=== PATIENT | female | born 1980 ===

== ENCOUNTER 2017-11-26 05:56 | Emergency (ER) | payer MEDICAID, OTHER ==
[2017-11-26 06:08] VITALS: BP 135/68; PULSE 98; RESP 16; TEMP 98.3; O2SAT 98
[2017-11-26] MEDS ORDERED: Tetracaine 0.5% Ophth 2 ML BOTTLE OU ONE (06:22)
[2017-11-26] MEDS ORDERED: Fluorescein 1 mg Ophthalmic Strip OS ONE (06:23)
[2017-11-26] MEDS ORDERED: Fluorescein 1 mg Ophthalmic Strip ONE (06:28)
[2017-11-26] MEDS ORDERED: Tetracaine 0.5% Ophth (OR ONLY) ONE (06:28)
[2017-11-26] MEDS ORDERED: PROPARACAINE/FLUORESCEIN SOD 100 DROP/5 ML BOTTLE ONE (06:30)
[2017-11-26] MEDS ORDERED: Amoxicillin-Clav 875-125 mg Tab PO STA (06:36)
[2017-11-26] MEDS ORDERED: Erythromycin 0.5% Ophth Oint 1 APPLIC/3.5 G OS STA (06:36)
[2017-11-26] MEDS ORDERED: PROPARACAINE/FLUORESCEIN SOD 100 DROP/5 ML BOTTLE OS STA (06:37)
--- NOTE | 2017-11-26 06:41 | C.PDOC ---
History Of Present Illness The patient reports 2 day history of Left eye pain which is described as burning and itchy. The patient reports that the eye was swollen and she applied warm compresses to the area with no relief. Denies contact lens use, fever, trauma, travel, vision changes. Time Seen by Provider: 11/26/17 06:22 Chief Complaint (Nursing): Eye Problem History Per: Patient History/Exam Limitations: no limitations Current Symptoms Are (Timing): Still Present Injury To Eye?: No Quality: Burning Wears Contact Lens?: No Recent travel outside of the [place]: No Past Medical History Vital Signs: Last Vital Signs Temp 98.3 F 11/26/17 06:00 Pulse 98 H 11/26/17 06:00 Resp 16 11/26/17 06:00 BP 135/68 11/26/17 06:00 Pulse Ox 98 11/26/17 06:00 - Medical History PMH: Anemia, Depression Surgical History: Cholecystectomy, ( x 3) - [facility] Procedures INJECT/INFUSE NEC (09/30/14) Family History: States: Diabetes (mother) - Social History Hx Tobacco Use: Yes Hx Alcohol Use: Yes Hx Substance Use: No - Immunization History Hx Tetanus Toxoid Vaccination: No Hx Influenza Vaccination: No Hx Pneumococcal Vaccination: No Review Of Systems Constitutional: Negative for: Fever ENT: Negative for: Ear Pain Skin: Negative for: Rash Neurological: Negative for: Weakness, Numbness Physical Exam - Physical Exam Appears: Non-toxic, No Acute Distress Skin: Normal Color, Warm Head: Atraumatic, Normacephalic Eye(s): bilateral: Normal Inspection Oral Mucosa: Moist Neck: Normal ROM, Supple Extremity: Normal ROM Neurological/Psych: Oriented x3, Normal Speech Gait: Steady ED Course And Treatment O2 Sat by Pulse Oximetry: 98 (on RA) Pulse Ox Interpretation: Normal Disposition - Disposition Referrals: [facility] [Outside] Jake Aranda MD [Staff Provider] - Disposition: HOME/ ROUTINE Disposition Time: 06:30 Condition: FAIR Additional Instructions: Follow up with the medical doctor within 1-2 days, Return if worsened. Prescriptions: Amoxicillin/Clavulanate [Augmentin 875 MG-125 MG] 1 tab PO BID #14 tab Erythromycin 0.5% [Ilytocin] 5 mg OS TID #1 tube Ibuprofen [Motrin] 600 mg PO TID #21 tab Instructions: Conjunctivitis (Pinkeye) (DC) Print Language: VIET[place]ESE - POA Present On Arrival: None - Clinical Impression Clinical Impression: Conjunctivitis
[2017-11-26] MEDS ORDERED: Amoxicillin-Clav 875-125 mg Tab PO ONE (06:43)
[2017-11-26] MEDS ORDERED: Erythromycin 0.5% Ophth Oint 1 APPLIC/3.5 G ONE (06:44)
== END 2017-11-26 06:56 | disposition home or self-care (01) ==
LOC: C.ER 05:56
DX: H10.9 Unspecified conjunctivitis (principal)